=== PATIENT | female | born 1955 | race Caucasian/White ===

== ENCOUNTER → 2017-01-22 | Outpatient (CLI) | payer MEDICARE ==
[~2017-01-22] MED LIST: ALBUS PO; CIPR500T4 PO; FLAG500T PO; METO25 PO; METO50TA; SIMV5TAB3 PO; SPIRCAP INH; VENTAER INH
[2017-01-22 13:29] LABS: HDL CHOLESTEROL 49.3 MG/DL (40.0-60.0)
== END ==
LOC: CLAB 12:39
PROVIDERS: ATTEND Family Medicine
DX: E78.5 Hyperlipidemia, unspecified (principal)
CPT/HCPCS: 36415; 80061; 84450; 84460

== ENCOUNTER → 2017-09-17 | Outpatient (CLI) | payer MEDICARE ==
[2017-09-17 13:56] LABS: CHOLESTEROL/ HDL RATIO 2.81 RATIO; HDL CHOLESTEROL 51.1 MG/DL (40.0-60.0)
== END ==
LOC: CLAB 13:05
PROVIDERS: ATTEND Family Medicine
DX: E78.5 Hyperlipidemia, unspecified (principal); Z13.1 Encounter for screening for diabetes mellitus; Z11.59 Encounter for screening for other viral diseases
CPT/HCPCS: 36415; 80061; 82947; 84450; 84460; 86803